=== PATIENT | female | born 1970 | race Caucasian/White ===

== ENCOUNTER → 2017-01-12 | Outpatient (CLI) | payer OTHER | LOC: LAB 10:45 | PROVIDERS: Nurse Practitioner Family | DX: I10 Essential (primary) hypertension (principal); W19.XXXS Unspecified fall, sequela | CPT/HCPCS: 36415; 72110; 72202; 80048 ==

== ENCOUNTER 2017-03-27 14:04 | Emergency (ER) | payer OTHER ==
[2017-03-27 15:36] LABS: HEMOGLOBIN 12.7 gm/dl (12.3-15.3); RED BLOOD COUNT 4.32 M/UL (4.00-5.10); WHITE BLOOD COUNT 9.4 K/UL (4.5-11.0)
== END 2017-03-27 21:10 | disposition home or self-care (01) ==
LOC: ER1 14:04
PROVIDERS: Student in an Organized Health Care Education/Training Program
DX: R07.89 Other chest pain (principal); R06.02 Shortness of breath; R53.83 Other fatigue; R61 Generalized hyperhidrosis; I10 Essential (primary) hypertension; Z87.891 Personal history of nicotine dependence; Z88.5 Allergy status to narcotic agent; Z88.6 Allergy status to analgesic agent; Z90.49 Acquired absence of other specified parts of digestive tract; Z79.899 Other long term (current) drug therapy
CPT/HCPCS: 36415; 71010; 80053; 82550; 82553; 83874; 84484; 84703; 85025; 85379; 93005; 96374; 96375; 99285; J1885; J2270; J7050; Q9962

== ENCOUNTER → 2017-07-12 | Outpatient (CLI) | payer OTHER | LOC: RAD 12:58 | DX: M25.471 Effusion, right ankle (principal) | CPT/HCPCS: 73610 ==

== ENCOUNTER → 2022-03-14 | Outpatient (CLI) | payer OTHER | LOC: KOH-I 16:02 | DX: K59.09 Other constipation (principal) | CPT/HCPCS: 74018 ==

== ENCOUNTER → 2022-03-29 | Outpatient (CLI) | payer OTHER | LOC: EXRD 14:24 | DX: N18.9 Chronic kidney disease, unspecified (principal) | CPT/HCPCS: 76775 ==

== ENCOUNTER 2022-05-16 07:44 | Emergency (ER) | payer OTHER | END 2022-05-16 08:50 | disposition home or self-care (01) | LOC: ER1 07:44 | DX: S93.402A Sprain of unspecified ligament of left ankle, initial encounter (principal); I10 Essential (primary) hypertension; Z79.899 Other long term (current) drug therapy; Z88.5 Allergy status to narcotic agent; Z88.6 Allergy status to analgesic agent; Z91.041 Radiographic dye allergy status; X50.9XXA Other and unspecified overexertion or strenuous movements or postures, initial encounter; Y92.009 Unspecified place in unspecified non-institutional (private) residence as the place of occurrence of the external cause | CPT/HCPCS: 73610; 99283 ==